=== PATIENT | male | born 1970 | race Caucasian/White ===

== ENCOUNTER 2020-10-14 04:30 | Day surgery (SDC) | payer OTHER ==
[2020-10-10 15:29] VITALS: BMI 32.6
[~2020-10-14 04:30] MED LIST: ceFAZolin SODIUM 1 GM VIAL IVPB ONE
[2020-10-14] MEDS ORDERED: MIDAZOLAM HCL 2 MG/2 ML SINGLE DOSE VIAL ONE ×2 (08:49)
[2020-10-14] MEDS ORDERED: ROPIVACAINE HCL 0.5% 30ML VIAL ONE (08:50)
[2020-10-14] MEDS ORDERED: PROPOFOL 20 ML ONE (09:23)
[2020-10-14] MEDS ORDERED: ONDANSETRON 4 MG/2 ML VIAL ONE (09:24)
[2020-10-14] MEDS ORDERED: DEXAMETHASONE SOD PHOSPHATE 4 MG/1 ML VIAL ONE (09:24)
[2020-10-14] MEDS ORDERED: LIDOCAINE HCL/PF 2% SDV 5ML VIAL ONE (09:24)
[2020-10-14] MEDS ORDERED: CLINDAMYCIN 600 MG PREMIX BAG IVPB ONE (09:58)
[2020-10-14] MEDS ORDERED: CLINDAMYCIN PHOSPHATE 600 MG/4 ML VIAL ONE (09:58)
[2020-10-14 12:30] VITALS: TEMP 97.6
[2020-10-14] MEDS ORDERED: oxyCODONE HCL 5 MG TABLET PO PRN ×2 (12:35)
[2020-10-14] MEDS ORDERED: ONDANSETRON 4 MG/2 ML VIAL IVPUSH PRN (12:35)
[2020-10-14] MEDS ORDERED: LACTATED RINGERS SOLUTION 1,000 ML IV SCH (12:45)
[2020-10-14 15:37] VITALS: BP 130/70; PULSE 68
== END 2020-10-14 16:00 | disposition home or self-care (01) ==
LOC: JASU-SURG 04:30
PROVIDERS: ATTEND Orthopaedic Surgery
PROC: 0LQ20ZZ Repair Left Shoulder Tendon, Open Approach (ICD-10-PCS; principal; 2020-10-14 10:00)
PROC: 0RNK4ZZ Release Left Shoulder Joint, Percutaneous Endoscopic Approach (ICD-10-PCS; 2020-10-14 10:00)
DX: M75.122 Complete rotator cuff tear or rupture of left shoulder, not specified as traumatic (principal); M75.42 Impingement syndrome of left shoulder; Z53.33 Arthroscopic surgical procedure converted to open procedure; M75.52 Bursitis of left shoulder
CPT/HCPCS: 82962; 88304-TC; 94760